=== PATIENT | male | born 1955 | race Caucasian/White ===

== ENCOUNTER 2022-05-01 19:55 | Emergency (ER) | payer OTHER ==
[2022-05-01 20:06] VITALS: BP 176/84; PULSE 63; RESP 18; TEMP 98.1; BMI 25.1
[2022-05-01] MEDS ORDERED: DIPHTH,PERTUSS(ACELL),TET 0.5 ML DISP.SYRIN IM ONE ×2 (20:31→20:33)
== END 2022-05-01 20:38 | disposition home or self-care (01) ==
LOC: FER 19:55
PROC: 3E0234Z Introduction of Serum, Toxoid and Vaccine into Muscle, Percutaneous Approach (ICD-10-PCS; principal; 2022-05-01)
DX: S01.01XA Laceration without foreign body of scalp, initial encounter (principal)
CPT/HCPCS: 90715; 99283-25